=== PATIENT | female | born 1960 | race Two or more races ===

== ENCOUNTER 2019-08-14 01:10 | Emergency (ER) | payer OTHER ==
[~2019-08-14] VITALS: Ht 172.7 cm; Wt 104.3 kg
[2019-08-14] MEDS ORDERED: SYMBICORT 16010.2 GM IH (04:14)
[2019-08-14] MEDS ORDERED: MUCINEX DM ER1 EAC1 PO (04:14)
[2019-08-14] MEDS ORDERED: TESSALON PERLE100 M1 PO (04:15)
[2019-08-14] MEDS ORDERED: AIRBORNE EFFER1 EACH PO (04:15)
== END 2019-08-14 06:28 | disposition home or self-care (01) ==
LOC: ER 01:10
DX: J06.9 Acute upper respiratory infection, unspecified (principal)